=== PATIENT | female | born 1985 | race Caucasian/White ===

== ENCOUNTER 2019-03-27 19:25 | Emergency (ER) | payer OTHER ==
[~2019-03-27] VITALS: Ht 165.1 cm; Wt 111.3 kg
[~2019-03-27 19:25] MED LIST: AZIT250T PO; BACTDS PO; ELIM TOP; HYDR28.334 TP; IBUP-1542 PO; LORA10CA PO; PHEN-537 PO; PROM6.25 PO
[2019-03-27 19:26] VITALS: BP 138/64; Ht 165.1 cm; Wt 111.3 kg
[2019-03-27 21:18] VITALS: PULSE 68; RESP 18
== END 2019-03-27 21:19 | disposition home or self-care (01) ==
LOC: FTE 19:25
DX: R21 Rash and other nonspecific skin eruption (principal)
CPT/HCPCS: 99282